=== PATIENT | female | born 1940 | race Two or more races ===

== ENCOUNTER 2017-04-30 18:04 | Inpatient (IN) | payer MEDICARE, BC ==
[~2017-04-30] VITALS: Ht 160 cm; Wt 61.7 kg
--- NOTE | 2017-04-30 18:12 | NUR ---
PATIENT TO ED DT LEFT KNEE PAIN SP FALL, TODAY. NO KO. PATIENT IS UNABLE TO BEAR WEIGHT ON LEFT LEFT. NOTED WITH ABRASION/ SKIN TEAR. PATIENT IS AAO4. APPEARS IN NO APPARENT DISTRESS. VSS
--- NOTE | 2017-04-30 18:13 | NUR ---
Note joann in EDM - 04/30/17 at 1905 by ARMIDA PATIENT TO ED DT LEFT KNEE PAIN SP FALL TODAY. NO KO. REMAINS AMBULATORY. VSS
--- NOTE | 2017-04-30 19:06 | NUR ---
REPORT GIVEN TO NURSE WOODS FOR LÓPEZ
--- NOTE | 2017-04-30 19:08 | NUR ---
PT APPEARS TO BE RESTING IN BED. PT IS UNABLE TO WALK OR LIFT THE LLE. PT HAS LLE ON A PILLOW. PT IS ON THE MONITOR AND CONTINUOUS PULSE OX. VSS.
--- NOTE | 2017-04-30 19:29 | NUR ---
DR. OLSON IS AT THE BEDSIDE SPEAKING TO THE PT.
[2017-04-30 19:33] LABS: BASOPHILS # (AUTO) 0.1 /CMM (0.0-0.2); BASOPHILS % (AUTO) 0.4 % (0.0-2.0); EOSINOPHILS # (AUTO) 0.2 /CMM (0.0-0.7); EOSINOPHILS % (AUTO) 1.1 % (0.0-6.0); HEMATOCRIT 42 % (33-45); LYMPHOCYTES # (AUTO) 2.9 /CMM (0.8-4.8); LYMPHOCYTES % (AUTO) 19.2 % (20.0-44.0); MEAN CORPUSCULAR HEMOGLOBIN 28 PG (26.0-33.0); MEAN CORPUSCULAR HGB CONC 34 g/dl (31.0-36.0); MEAN CORPUSCULAR VOLUME 84 fL (82-100); MONOCYTES # (AUTO) 0.5 /CMM (0.1-1.30); MONOCYTES % (AUTO) 3.7 % (2.0-12.0); NEUTROPHILS # (AUTO) 11.2 /CMM (1.8-8.9); NEUTROPHILS % (AUTO) 75.6 % (43.0-81.0); PLATELET COUNT (AUTO) 341 /CMM (150-450); RDW COEFFICIENT OF VARIATION 12.3 (11.5-15.0); RED BLOOD CELL COUNT(AUTO) 4.94 MIL/uL (4.0-5.2); WHITE BLOOD COUNT (AUTO) 14.9 K/uL (4.3-11.0)
[2017-04-30 19:43] LABS: CALCIUM, SERUM 9.1 mg/dL (8.5-10.1); CARBON DIOXIDE 31 mmol/L (21-32); CHLORIDE 104 mmol/L (98-107); CREATININE 0.7 mg/dL (0.6-1.3); GLUCOSE 111 mg/dL (74-106); POTASSIUM 3.8 mmol/L (3.5-5.1); SODIUM SERUM 140 mmol/L (136-145); UREA NITROGEN, BLOOD 14 mg/dL (7-18)
[2017-04-30 19:47] LABS: INR 0.96 (0.87-1.13)
--- NOTE | 2017-04-30 20:01 | NUR ---
DR. NAJERA IS ON THE PHONE WITH DR. OLSON.
--- NOTE | 2017-04-30 20:21 | NUR ---
PATIENT ASSIGNED TO MS [id number]
--- NOTE | 2017-04-30 20:29 | NUR ---
DR. WHATLEY IS AT THE BEDSIDE SPEAKING TO THE PT.
--- NOTE | 2017-04-30 20:29 | NUR ---
REPORT GIVEN TO TONI HOWARD
--- NOTE | 2017-04-30 20:44 | NUR ---
PT LEFT VIA GURNEY TO MS.
[2017-04-30 20:45] VITALS: BP 149/75
[2017-04-30 20:50] VITALS: BP 149/75
--- NOTE | 2017-04-30 20:50 | NUR ---
MS RN OPENING NOTES: RECEIVED PT IN [facility]. PT IS A/OX4. PT IS REPORTING OF L KNEE PAIN 10/22. INFORMED PT THAT ONCE DOCTOR ORDERS ARE PUT IN, WILL OFFER PAIN MEDICATION IF SHE REQUESTS FOR IT. NEPHEW AT BEDSIDE. PT HAS IV ON R AC #20G AND HAS BEEN FLUSHED. CURRENTLY S/L. INFORMED PT NOT TO HAVE ANYTHING TO EAT OR DRINK ONCE ORDERS ARE CLARIFIED. PT ON ROOM AIR AND TOLERATING WELL. NO SOB NOTED. NO S/S OF DISTRESS NOTED AT THIS TIME. INSTRUCTED PT TO USE CALL LIGHT AND WILL ASSIST WITH BED STAHL. CALL LIGHT WITHIN PT'S REACH. BED KEPT IN LOW, LOCKED POSITION, AND SIDE RAILS X 2UP. WILL CONTINUE TO MONITOR PT.
[2017-04-30] MEDS ORDERED: MAG HYDROX/AL HYDROX/SIMETH 30 ML UDC PO PRN (21:30)
[2017-04-30] MEDS ORDERED: Z GUARD REMEDY 2 OZ OINT TP PRN (21:30)
[2017-04-30] MEDS ORDERED: HYDROCODONE/APAP 5/325MG 1 EACH TABLET PO PRN (21:30)
[2017-04-30] MEDS ORDERED: MAGNESIUM HYDROXIDE 30 ML UDC PO PRN (21:30)
[2017-04-30] MEDS ORDERED: ONDANSETRON HCL/PF 4 MG/2 ML VIAL IVP PRN (21:30)
[2017-04-30] MEDS ORDERED: ACETAMINOPHEN 325 MG TABLET PO PRN (21:30)
[2017-04-30] MEDS ORDERED: HYDROCODONE/APAP 10/325MG 1 EA TABLET PO PRN (21:30)
[2017-05-01 06:28] LABS: BASOPHILS % (AUTO) 0.2 % (0.0-2.0); EOSINOPHILS # (AUTO) 0.3 /CMM (0.0-0.7); HEMATOCRIT 40 % (33-45); HEMOGLOBIN 13.3 g/dL (11.5-14.8); LYMPHOCYTES % (AUTO) 21.4 % (20.0-44.0); MEAN CORPUSCULAR HEMOGLOBIN 28 PG (26.0-33.0); MEAN CORPUSCULAR HGB CONC 33 g/dl (31.0-36.0); MEAN CORPUSCULAR VOLUME 86 fL (82-100); MONOCYTES # (AUTO) 0.9 /CMM (0.1-1.30); MONOCYTES % (AUTO) 6.3 % (2.0-12.0); NEUTROPHILS # (AUTO) 9.8 /CMM (1.8-8.9); NEUTROPHILS % (AUTO) 70.1 % (43.0-81.0); PLATELET COUNT (AUTO) 294 /CMM (150-450); RDW COEFFICIENT OF VARIATION 13.3 (11.5-15.0); RED BLOOD CELL COUNT(AUTO) 4.69 MIL/uL (4.0-5.2)
--- NOTE | 2017-05-01 06:41 | NUR ---
MS RN CLOSING NOTES: ALL NEEDS WERE ATTENDED AND ANTICIPATED FOR. PT IS A/OX4. PT HAS IV ON R AC #20G AND IS PATENT AND INTACT. CURRENTLY S/L. PT ON ROOM AIR AND IN SEMI-SMITH'S POSITION. NO SOB NOTED. NO S/S OF DISTRESS NOTED AT THIS TIME. CALL LIGHT WITHIN PT'S REACH. BED KEPT IN LOW, LOCKED POSITION, AND SIDE RAILS X 2UP. WILL ENDORSE TO AM NURSE FOR LÓPEZ.
[2017-05-01 07:03] LABS: ALANINE AMINOTRANSFERASE 27 U/L (12-78); ALBUMIN 3.3 g/dL (3.4-5.0); ALKALINE PHOSPHATASE 65 U/L (46-116); ASPARTATE AMINOTRANSFERASE 18 U/L (15-37); BILIRUBIN,TOTAL 0.4 mg/dL (0.2-1.0); CARBON DIOXIDE 28 mmol/L (21-32); CHLORIDE 108 mmol/L (98-107); CREATININE 0.8 mg/dL (0.6-1.3); GLUCOSE 111 mg/dL (74-106); MAGNESIUM 2.2 mg/dL (1.8-2.4); PHOSPHORUS 3.9 mg/dL (2.5-4.9); POTASSIUM 4.4 mmol/L (3.5-5.1); SODIUM SERUM 144 mmol/L (136-145); TOTAL PROTEIN, SERUM 7.1 g/dL (6.4-8.2); UREA NITROGEN, BLOOD 15 mg/dL (7-18)
[2017-05-01 07:12] LABS: CHOLESTEROL 166 mg/dL (<200); HDL CHOLESTEROL 47 mg/dL (40-60); LDL 112 mg/dL (0-99); TRIGLYCERIDES 62 mg/dL (30-150)
--- NOTE | 2017-05-01 07:43 | NUR ---
MS/RN OPENING NOTE PATIENT RECEIVED IN BED IN STABLE CONDITION. A/O X 4. NO SIGNS OF ACUTE DISTRESS. NO COMPLAIN OF PAIN OR DISCOMFORT. ALL NEEDS ATTENDED TO. CALL LIGHT WITHIN REACH. WILL CONTINUE TO MONITOR TO ENSURE SAFETY.
[2017-05-01 08:00] VITALS: BP 161/87
[2017-05-01 08:37] LABS: APPEARANCE,URINE CLEAR (CLEAR); BILIRUBIN,URINE NEGATIVE (NEGATIVE); BLOOD, URINE NEGATIVE Ery/uL (NEGATIVE); COLOR,URINE YELLOW (YELLOW); KETONES,URINE NEGATIVE (NEGATIVE); LEUKOCYTE ESTERASE ,URINE NEGATIVE (NEGATIVE); NITRITE, URINE NEGATIVE (NEGATIVE); PH,URINE 6.5 (5.0-8.0); PROTEIN,URINE NEGATIVE (NEGATIVE); UGLUCOSE NEGATIVE (NEGATIVE); UROBILINOGEN,URINE 0.2 EU/dL (0.2)
[2017-05-01] MEDS: IV NS 0.9% 1,000 ML IV PRN (09:51)
--- NOTE | 2017-05-01 12:40 | NUR ---
MS/RN SEEN BY DR DOUGHERTY PATIENT SEEN BY DR DOUGHERTY WITH ORDERS FOR LOVENOX 40MG SQ X 1 ONLY [facility].
[2017-05-01 16:00] VITALS: BP 134/69
--- NOTE | 2017-05-01 18:10 | NUR ---
MS/RN CLOSING NOTE PATIENT IN BED IN STABLE CONDITION. A/O X 3. NO SIGNS OF ACUTE DISTRESS. NO COMPLAIN OF PAIN OR DISCOMFORT. ALL NEEDS ATTENDED TO. CALL LIGHT WITHIN REACH.WILL ENDORSE TO NEXT SHIFT FOR CONTINUITY OF CARE.
--- NOTE | 2017-05-01 19:30 | NUR ---
RN OPENING NOTES PATIENT IS IN BED, ALERT AND ORIENTEDX4. VS STABLE. NO C/O PAIN AT THIS TIME. NO SOB NOTED. RESPIRATIONS EVEN AND UNLABORED. IV ACCESS ON RAC PATENT AND INTACT. NO REDNESS OR INFILTRATION NOTED. BED INN LOW AND LOCKED POSITION. SIDE RAILS X2. CALL LIGHT WITHIN EASY REACH. WILL CONTINUE TO MONITOR AND ASSESS DURING THE SHIFT.
[2017-05-01 20:00] VITALS: BP_SYST 145; BP_DIAS 75; BP_DIAS 78
--- NOTE | 2017-05-01 21:43 | NUR ---
RN NOTES PATIENT C/O CONSTIPATION. 30 ML OF MILK OF MAGNESIA ADMINISTERED. CONTINUE TO MONITOR.
[2017-05-01] MEDS ORDERED: ENOXAPARIN SODIUM 40 MG/0.4 ML DISP.SYRIN SQ ONE (22:00)
[2017-05-02] VITALS (9 sets, daily range): BP systolic 132–163; BP diastolic 60–97
--- NOTE | 2017-05-02 07:03 | NUR ---
RN CLOSING NOTES PATIENT IS SLEEPING IN BED, EASY TO AROUSE. ALERT AND ORIENTEDX4. VS STABLE. NO SOB NOTED. RESPIRATIONS EVEN AND UNLABORED. IV ACCESS ON RAC PATENT AND INTACT. NO REDNESS OR INFILTRATION NOTED. PATIENT IS NPO SINCE MIDNIGHT DUE TO SURGERY. CONSENT SIGNED. BED IN LOW AND LOCKED POSITION. SIDE RAILS X2. CALL LIGHT WITHIN EASY REACH. WILL ENDORSE TO RN DAY SHIFT FOR LÓPEZ.
--- NOTE | 2017-05-02 07:48 | NUR ---
MS RN: INITIAL NOTE RECEIVED PT A/OX4. MS. NPO EXCEPT MEDS. SCHEDULED FOR ORIF AT 2PM TODAY. HAS BEEN NPO SINCE LAST NIGHT AT 12AM. CONTINENT USES BEDPAN. R AC #22 RUNNING NS AT 70ML/HR. SITE CLEAR AND PATENT. NO DISTRESS NOTED. NO SOB NOTED. ON ROOM AIR SATING AT 96%. RESTING COMFORTABLY IN BED. CALL LIGHT WITHIN REACH.
[2017-05-02] MEDS: IV NS 0.9% 1,000 ML IV PRN (08:54)
[2017-05-02] MEDS ORDERED: AMLODIPINE BESYLATE 5 MG TABLET PO ONE (09:00)
--- NOTE | 2017-05-02 13:18 | NUR ---
PT TAKEN DOWN TO SURGERY FOR L ORIF WITH MD GUTIERREZ.
[2017-05-02] MEDS ORDERED: SEVOFLURANE 250 ML BOTTLE IH ONE (13:56)
[2017-05-02] MEDS ORDERED: BACITRACIN 50000 UNITS/VIAL ONE (13:56)
[2017-05-02] MEDS ORDERED: BUPIVACAINE 0.5 % PF 150 MG/30 ML VIAL ONE (13:56)
[2017-05-02] MEDS ORDERED: FENTANYL PF 100MCG/2ML AMPUL ONE (16:07)
[2017-05-02] MEDS ORDERED: ACETAMINOPHEN 325 MG TABLET PO PRN (17:00)
[2017-05-02] MEDS ORDERED: DOCUSATE SODIUM 100 MG CAPSULE PO PRN (17:00)
[2017-05-02] MEDS ORDERED: SENNOSIDES 8.6 MG TABLET PO PRN (17:00)
--- NOTE | 2017-05-02 17:00 | NUR ---
PT RETURNED FROM POST OP L ORIF. DRESSING INTACT. IMMOBILIZER IN PLACE. NEW ORDERS PER MD CARRIED OUT. BP 153/70, PULSE 100, RR 19, 02 94% ON ROOM AIR. RESTING COMFORTABLY IN BED. CALL LIGHT WITHIN REACH.
[2017-05-02] MEDS ORDERED: oxyCODONE IR immediate release 5 MG CAPSULE PO PRN (17:30)
[2017-05-02] MEDS ORDERED: MORPHINE SULFATE INJ 4 MG/ML DISP.SYRIN IV PRN (17:30)
[2017-05-02] MEDS: oxyCODONE IR immediate release 5 MG CAPSULE PO PRN (17:45)
--- NOTE | 2017-05-02 18:57 | NUR ---
MS RN: CLOSING NOTE PT S/P L ORIF WITH MD DOUGHERTY. A/OX4. NO DISTRESS NOTED. NO SOB NOTED. PAIN CONTROLLED WITH PAIN MEDICATIONS. SITE WITH DRESSING INTACT. ORDER AL MD DOUGHERTY TO KEEP IMMOBILIZER ON AT ALL TIMES. MAKE SURE NOT TO TAKE IT OFF. ON REGULAR DIET. TOLERATED DIET WELL. BP RUNNING HIGH. CONTACTED MD MUNOZ. LAST BP 158/80. PULSE 110. AWAITING CALL BACK WITH ORDERS. NO BLURRED VISION NOTED. PT A/OX. NO CHANGES IN LOC. PERRLA. NO NEW ONSET OF WEAKNESS NOTED. R AC#20 RUNNING NS AT 70ML/HR. RESTING COMFORTABLY IN BED. CALL LIGHT WITHIN REACH.
--- NOTE | 2017-05-02 19:50 | NUR ---
MS RN INITIAL NOTE PT IS IN BED AWAKE AND ALERT X3 WITH FAMILY AT BEDSIDE. DENIES PAIN. NO SIGNS OF SOB OR DISTRESS. O2 IS 90% PT PLACED ON 3L NC O2 INCREASED TO 95%. PT BP IS 159/80 HR 122. IV FLUIDS WERE HELD DUE TO HIGH BP. PLACED PT ON MANAGING MEMBER, SHOWING ST. CALLED FOR FURTHER ORDERS. SURGICAL SITE IS DRESS AND INTACT. BED IS IN LOW AND LOCKED POSITION, CALL LIGHT WITHIN REACH. WILL CONTINUE TO MONITOR PT
--- NOTE | 2017-05-02 20:05 | NUR ---
MS RN NOTE DR RECOMMENDED TO GIVE PT MORPHINE 4MG AND MONITOR BP. WILL CONTINUE TO MONITOR
[2017-05-02] MEDS: ACETAMINOPHEN 325 MG TABLET PO SCH (20:30)
[2017-05-02] MEDS: ANCEF 1 GM/50 ML D5W IV SCH ×2 (21:23)
--- NOTE | 2017-05-02 22:05 | NUR ---
EPIC WOODS BOSS PAGED FOR PT BP INCREASE AND HR OF 118, AWAITING CALL BACK
--- NOTE | 2017-05-02 22:25 | NUR ---
MD ORDERED METROPOLOL 25 MG PRN FOR SBP >160. WILL ADMINISTER AND CONTINUE TO MONITOR PT
[2017-05-02] MEDS ORDERED: METOPROLOL TARTRATE 25 MG TABLET PO PRN (22:30)
[2017-05-02] MEDS ORDERED: METOPROLOL TARTRATE 25 MG TABLET ONE (22:31)
[2017-05-03] MEDS: ACETAMINOPHEN 325 MG TABLET PO SCH ×6 (00:39→21:00)
[2017-05-03] MEDS: ANCEF 1 GM/50 ML D5W IV SCH ×2 (05:06)
--- NOTE | 2017-05-03 06:20 | NUR ---
MS RN CLOSING NOTES PT IS LAYING IN BED RESTING, DRESSING ON LEG INTACT. BP AND HR BEING MONITORED THROUGHOUT THE NIGHT. PT IS SATING WELL ON 2L NC, NO SIGNS OF SOB OR DISTRESS. IV FLUIDS HELD DUE TO HIGH BP. ALL NEEDS WERE ANTICIPATED AND MET. BED IS IN LOW AND LOCKED POSITION, CALL LIGHT WITHIN REACH. WILL ENDORSE TO DAYSHIFT
[2017-05-03 06:48] LABS: BASOPHILS % (AUTO) 0.2 % (0.0-2.0); EOSINOPHILS % (AUTO) 0.1 % (0.0-6.0); HEMATOCRIT 40 % (33-45); HEMOGLOBIN 13.4 g/dL (11.5-14.8); LYMPHOCYTES # (AUTO) 2.4 /CMM (0.8-4.8); LYMPHOCYTES % (AUTO) 11.5 % (20.0-44.0); MEAN CORPUSCULAR HEMOGLOBIN 29 PG (26.0-33.0); MEAN CORPUSCULAR HGB CONC 34 g/dl (31.0-36.0); MEAN CORPUSCULAR VOLUME 86 fL (82-100); MONOCYTES # (AUTO) 1.5 /CMM (0.1-1.30); MONOCYTES % (AUTO) 7.1 % (2.0-12.0); NEUTROPHILS % (AUTO) 81.1 % (43.0-81.0); PLATELET COUNT (AUTO) 300 /CMM (150-450); RDW COEFFICIENT OF VARIATION 13.2 (11.5-15.0); RED BLOOD CELL COUNT(AUTO) 4.69 MIL/uL (4.0-5.2)
[2017-05-03 07:33] LABS: CARBON DIOXIDE 26 mmol/L (21-32); CHLORIDE 103 mmol/L (98-107); CREATININE 0.8 mg/dL (0.6-1.3); GLUCOSE 128 mg/dL (74-106); POTASSIUM 4.1 mmol/L (3.5-5.1); SODIUM SERUM 138 mmol/L (136-145); UREA NITROGEN, BLOOD 12 mg/dL (7-18)
--- NOTE | 2017-05-03 07:38 | NUR ---
MS RN: INITIAL NOTE RECEIVED PT A/OX4. MS. GRAJEDA USES BED STAHL. ON BEDREST. S/P L ORIF WITH MD DOUGHERTY ON 05/02/17. IMMOBILIZER IN PLACE. NOT TO BE TAKEN OF AT ALL TIMES. ON REGULAR DIET. TOLERATING WELL. R AC#2O. SITE CLEAR AND PATENT. NO DISTRESS NOTED. PAIN CONTROLLED WITH PAIN MEDICATIONS. NO SOB NOTED. RESTING COMFORTABLY IN BED. CALL LIGHT WITHIN REACH.
[2017-05-03 08:00] VITALS: BP 148/93
[2017-05-03] MEDS: RIVAROXABAN 10 MG TABLET PO SCH (08:52)
[2017-05-03] MEDS: VALSARTAN 80 MG TABLET PO SCH (10:36)
--- NOTE | 2017-05-03 13:49 | NUR ---
PT REFUSES TYLENOL ROUTINE OR ANY PRN PAIN MEDICATIONS. ALL RISKS AND BENEFITS EXPLAINED. NO DISTRESS NOTED. PT STATED PAIN IN TOLERABLE.
[2017-05-03 17:58] VITALS: BP 155/58
[2017-05-03] MEDS: CHOLECALCIFEROL 1,000 UNIT TABLET (VIT D3) PO SCH (18:26)
[2017-05-03 18:43] VITALS: BP 155/58
--- NOTE | 2017-05-03 18:44 | NUR ---
MS RN: CLOSING NOTE PT A/OX4. REFUSED TO TAKE TYLENOL ROUTINE OR ANY PAIN MEDICATIONS THROUGHOUT THE DAY. ADVISED PT ABOUT THE RISKS AND BENEFITS OF TAKING PAIN MEDICATIONS. PT CONTINUED TO REFUSE. OTHER ROUTINE MEDS TAKEN OTHERWISE. CONTINENT AND USES BEDPAN. AMBULATORY WITH ASSIST. MAKE SURE TO KEEP IMMOBILIZER IN PLACE AT ALL TIMES. R AC #22 SL. SITE CLEAR AND PATENT. RESTING COMFORTABLY IN BED. CALL LIGHT WITHIN REACH.
--- NOTE | 2017-05-03 19:30 | NUR ---
RN NOTES RECEIVED PATIENT IN BED AWAKE, AO X 3, ABLE TO MAKE NEEDS KNOWN. NO ACUTE DISTRESS NOTED. MONITORED FOR PAIN. IV SITE PATENT, INTACT; FLUSHED. LEFT LEG IMMOBILIZER ON. SAFETY REMINDERS GIVEN. ON LOW BED WITH BILATERAL UPPER SIDE RAILS UP. CALL BUTTON WITHIN EASY REACH. WILL CONTINUE TO MONITOR.
[2017-05-03 20:00] VITALS: BP 142/78
[2017-05-03 20:08] VITALS: BP 142/78
[2017-05-03] MEDS: oxyCODONE IR immediate release 5 MG CAPSULE PO PRN (21:19)
[2017-05-04] MEDS: ACETAMINOPHEN 325 MG TABLET PO SCH ×4 (01:00→12:24)
--- NOTE | 2017-05-04 06:30 | NUR ---
RN NOTES PATIENT ASLEEP, EASILY AROUSABLE. RESPIRATIONS EVEN. NO SIGNS OF PAIN NOTED. NEEDS ATTENDED. KEPT CLEAN AND DRY. SAFETY PRECAUTIONS AND COMFORT MEASURES IN PLACE. WILL GIVE REPORT TO DAY SHIFT FOR CONTINUITY OF CARE.
--- NOTE | 2017-05-04 07:44 | NUR ---
RN OPENING NOTES RECEIVED PT. IN BED SLEEPING, EASILY AROUSABLE. BREATHING UNLABORED, AND EVENLY ON ROOM AIR. NO S/S OF ACUTE DISTRESS. IV FLUIDS NEAR BEDSIDE. BED IS IN LOWEST, AND LOCKED POSITION. 2 SIDE RAILS UP, AND CALL LIGHT WITHIN REACH. WILL CONTINUE TO ASSESS AND MONITOR.
[2017-05-04 08:00] VITALS: BP 166/91
[2017-05-04 08:50] VITALS: BP 106/91
[2017-05-04] MEDS: VALSARTAN 80 MG TABLET PO SCH (08:50)
[2017-05-04] MEDS: RIVAROXABAN 10 MG TABLET PO SCH (08:53)
[2017-05-04] MEDS: CHOLECALCIFEROL 1,000 UNIT TABLET (VIT D3) PO SCH (08:54)
[2017-05-04] MEDS ORDERED: CALCIUM CARBONATE (1250) 500 MG TABLET PO SCH (09:00)
[2017-05-04 09:18] LABS: BASOPHILS % (AUTO) 0.2 % (0.0-2.0); EOSINOPHILS # (AUTO) 0.2 /CMM (0.0-0.7); EOSINOPHILS % (AUTO) 1.1 % (0.0-6.0); HEMATOCRIT 39 % (33-45); HEMOGLOBIN 12.8 g/dL (11.5-14.8); LYMPHOCYTES # (AUTO) 2.6 /CMM (0.8-4.8); LYMPHOCYTES % (AUTO) 17.2 % (20.0-44.0); MEAN CORPUSCULAR HEMOGLOBIN 28 PG (26.0-33.0); MEAN CORPUSCULAR HGB CONC 33 g/dl (31.0-36.0); MEAN CORPUSCULAR VOLUME 87 fL (82-100); MONOCYTES # (AUTO) 0.7 /CMM (0.1-1.30); MONOCYTES % (AUTO) 4.7 % (2.0-12.0); NEUTROPHILS # (AUTO) 11.8 /CMM (1.8-8.9); NEUTROPHILS % (AUTO) 76.8 % (43.0-81.0); PLATELET COUNT (AUTO) 292 /CMM (150-450); RDW COEFFICIENT OF VARIATION 13.2 (11.5-15.0); WHITE BLOOD COUNT (AUTO) 15.4 K/uL (4.3-11.0)
[2017-05-04] MEDS ORDERED: PNEUMOCOCCAL 23-VAL P-SAC VAC 0.5 ML VIAL SQ ONE (15:00)
--- NOTE | 2017-05-04 16:00 | NUR ---
RN NOTES COULD NOT TAKE PICTURE OF LEFT LEG BEFORE DISCHARGE DUE TO PT. C/O PAIN WHILE MOVING LEG.
--- NOTE | 2017-05-04 17:32 | NUR ---
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 PT. WAS TAKEN TO [facility] BY AMBULANCE CREW AND NEPHEW ALONGSIDE. DISCHARGE INSTRUCTIONS, EDUCATION WAS PROVIDED AND PT. VERBALIZED UNDERSTANDING. DISCHARGE PAPERS SIGNED. BELONGING LIST WAS CHECKED, AND SIGNED. ID BAND, AND IV WAS REMOVED WITHOUT COMPLICATIONS. PT. WAS WEARING AN IMMOBILIZER ON LEFT LEG FOR TRANSFER. PNA VACCINE WAS GIVEN BEFORE DISCHARGE. REPORT WAS GIVEN TO TONI RIVERA FROM [facility]. ALL QUESTIONS ANSWERED. DISCHARGE PACKET WAS GIVEN TO AMBULANCE CREW.
== END 2017-05-04 17:20 | DRG 517 ==
LOC: ER 18:08 → MED 20:44
PROVIDERS: ADMIT Nurse Practitioner Acute Care; ATTEND Nurse Practitioner Acute Care
PROC: 0QSF04Z Reposition Left Patella with Internal Fixation Device, Open Approach (ICD-10-PCS; principal; 2017-05-03)
DX: S82.032A Displaced transverse fracture of left patella, initial encounter for closed fracture (principal); D72.829 Elevated white blood cell count, unspecified; W18.39XA Other fall on same level, initial encounter; W18.30XA Fall on same level, unspecified, initial encounter; G89.29 Other chronic pain; Z83.3 Family history of diabetes mellitus; Z82.3 Family history of stroke; Y92.480 Sidewalk as the place of occurrence of the external cause; Z98.890 Other specified postprocedural states
CPT/HCPCS: 36415; 71010-TC; 73562-TC; 73564-TC; 80048-TC; 80053-TC; 80061-TC; 81000-TC; 83605-TC; 83735-TC; 84100-TC; 84443-TC; 85025-TC; 85730-TC; 86850-TC; 87081-TC; 90732; 93307-TC; A6402; J0690; J1100; J1650; J2270; J2405; J2704; J3010; J3490; J7030; J7060; J7070; L1830